=== PATIENT | female | born 1995 | race African-American/Black ===

== ENCOUNTER 2021-05-21 02:54 | Emergency (ER) | payer OTHER ==
[2021-05-21] MEDS ORDERED: ACETAMINOPHEN 500 MG TABLET (FP) PO ONE (03:04)
[2021-05-21 03:05] VITALS: BP 99/63; PULSE 118; TEMP 100.7; BMI 25.0
[2021-05-21] MEDS ORDERED: SODIUM CHLORIDE 0.9% 500 ML INFUS.BAG IV ONE (03:06)
[2021-05-21] MEDS ORDERED: ACETAMINOPHEN 325 MG TABLET (FP) ONE (03:25)
[2021-05-21 03:56] LABS: BASO % 0.3 % (0-2.0); HEMATOCRIT 35.8 % (32.4-45.2); LYMPH % 5.1 % (8-40); MCH 28.1 pg (25.7-33.7); MCHC 33.6 g/dl (32.0-36.0); MEAN CELL VOLUME 83.8 fl (80-96); MEAN PLT VOLUME 9.7 fl (7.5-11.1); NEUT % 87.6 % (42.8-82.8); PLATELET COUNT 185 10^3/uL (134-434); RBC 4.28 M/mm3 (3.60-5.2); RDW 15.6 % (11.6-15.6); WHITE BLOOD COUNT 10.2 K/mm3 (4.0-10.0)
[2021-05-21 04:15] LABS: CHLORIDE 105 mmol/L (98-107); SODIUM 138 mmol/L (136-145)
[2021-05-21 04:18] LABS: BLOOD UREA NITROGEN 12.1 mg/dL (7-18); CALCIUM 9.4 mg/dL (8.5-10.1)
[2021-05-21 04:19] LABS: ALBUMIN 3.8 g/dl (3.4-5.0); ANION GAP 9 MMOL/L (8-16); CO2 24 mmol/L (21-32); GLUCOSE,RANDOM 102 mg/dL (74-106); LIPASE 122 U/L (73-393)
[2021-05-21 04:22] LABS: BILIRUBIN,TOTAL 0.4 mg/dL (0.2-1); CREATININE 0.9 mg/dL (0.55-1.3); SGOT/AST 19 U/L (15-37); SGPT/ALT 22 U/L (13-61)
[2021-05-21 04:23] LABS: TOT PROT 7.8 g/dl (6.4-8.2)
[2021-05-21 04:24] LABS: ALK PHOS 95 U/L (45-117)
[2021-05-21 04:39] LABS: EPI CELLS 3 /uL (0-25.1); HYALINE CASTS 2 /uL (0-3.1); URINE APPEARANCE CLEAR; URINE BACTERIA >9,000 /uL (0-1359); URINE BILIRUBIN NEGATIVE (NEGATIVE); URINE COLOR YELLOW; URINE GLUCOSE (UA) NEGATIVE (NEGATIVE); URINE KETONE NEGATIVE (NEGATIVE); URINE LEUK ESTERASE 3+ (NEGATIVE); URINE NITRITE NEGATIVE (NEGATIVE); URINE PROTEIN NEGATIVE (NEGATIVE); URINE RBC 5 /uL (0-23.9); URINE UROBILINOGEN 0.2 mg/dL (0.2-1.0); URINE WBC 392 /uL (0-25.8)
[2021-05-21 05:03] LABS: LACTIC ACID 2.5 mmol/L (0.4-2.0)
[2021-05-21] MEDS ORDERED: CEFTRIAXONE 1 GM in DEXTROSE 5%-WATER - 50 ML IVPB ONE (05:03)
[2021-05-21] MEDS ORDERED: CEFTRIAXONE 1 GM/50 ML BAG ONE (05:05)
[2021-05-21] MEDS ORDERED: IBUPROFEN 600 MG TABLET (FP) PO ONE ×2 (05:21→05:34)
== END 2021-05-21 05:49 | disposition home or self-care (01) ==
LOC: JER 02:54
DX: N30.90 Cystitis, unspecified without hematuria (principal); N10 Acute pyelonephritis
CPT/HCPCS: 36415; 80053; 81003; 83605; 83690; 84702; 84703; 85025; 85730; 86850; 86900; 86901; 87040; 87086; 87186; 93005; 93010; 99285-25; C9803; U0003; U0005